=== PATIENT | male | born 1995 | race African-American/Black ===

== ENCOUNTER → 2016-09-06 | Outpatient (REF) ==
--- NOTE | 2016-09-06 16:13 | REP ---
Clinical: Pain. Technique: AP and lateral views of the left tibia / fibula. Findings: Osseous structures, joint spaces, and surrounding soft tissues are normal. Impression: Normal left tibia / fibula. Signed by Jf Eldridge MD 09/06/2016 04:05 P
--- NOTE | 2016-09-06 16:14 | REP ---
Clinical: Chest pain. Technique: PA and lateral. Comparison: None. Findings: Moderate dextroconvex thoracic scoliosis is appreciated. Cardiac silhouette is normal. Lung mercado are clear. No consolidation, effusion, or pneumothorax. Impression: Scoliosis. No acute consolidation or cardiopulmonary process. Signed by Jf Eldridge MD 09/06/2016 04:06 P
--- NOTE | 2016-09-06 16:19 | REP ---
LUMBOSACRAL SPINE: Five views of the lumbosacral spine are performed. There is no compression fracture or malalignment. There is no spondylolysis or spondylolisthesis. There is normal lumbar lordosis. Disc spaces are well preserved. Posterior elements are intact. There is mild curvature of the thoracolumbar spine convex to the left. IMPRESSION: Mild curvature of thoracolumbar spine convex to the left. Otherwise negative lumbosacral spine series. Signed by Ramiro Parikh MD 09/07/2016 06:28 P
--- NOTE | 2016-09-06 16:21 | REP ---
Left foot series: Four views of the left foot are performed. There is no acute fracture or dislocation. Joint spaces appear normal. There is no intrinsic osseous pathology. IMPRESSION: Negative left foot series. Signed by Ramiro Parikh MD 09/07/2016 06:28 P
== END ==
LOC: M SMT 15:30
PROVIDERS: ATTEND Internal Medicine
DX: Z02.1 Encounter for pre-employment examination (principal)

== ENCOUNTER → 2016-09-10 | Outpatient (CLI) | payer OTHER | LOC: M SLEEP 18:56 | PROVIDERS: ATTEND Nurse Practitioner Adult Health | DX: G47.30 Sleep apnea, unspecified (principal) ==